=== PATIENT | male | born 1970 | race Caucasian/White ===

== ENCOUNTER 2017-04-20 22:02 | Inpatient (IN) | payer OTHER ==
[~2017-04-20] VITALS: Ht 160 cm; Wt 71.5 kg
[~2017-04-20 22:02] MED LIST: GLU500 PO; NEU300 PO
--- NOTE | 2017-04-20 23:24 | NUR ---
PT IN ED FOR SCAB TO L LATERAL CALF WITH SURROUNDING REDNESS TO AREA. PT STS HE SAW HIS PCP AND WAS GIVEN ABX BUT IT HAS NOT GOTTEN BETTER. PT AAO4, RESP E/U, STS NO PAIN AT THIS TIME
[2017-04-20 23:33] LABS: CALCIUM 8.7 mg/dL (8.5-10.1); CARBON DIOXIDE 26.8 mmol/L (21-32); CHLORIDE SERUM 98 mmol/L (98-107); CREATININE SERUM 0.8 mg/dL (0.7-1.3); GFR1 > 60 mL/min; GLUCOSE SERUM 334 mg/dL (74-106); SODIUM SERUM 133 mmol/L (136-145)
[2017-04-20 23:35] LABS: BASOPHIL % 0.5 % (0-2); PLATELET COUNT 227 x10^3mcL (130-400); RED CELL DISTRIBUTION WIDTH 11.8 % (11.5-14.5)
[2017-04-20 23:37] LABS: ALKALINE PHOSPHATASE 152 U/L (46-116); ALT/SGPT 25 U/L (16-63); AST/SGOT 12 U/L (15-37); BILIRUBIN TOTAL 0.5 mg/dL (0.20-1.00); TOTAL PROTEIN, SERUM 8.1 g/dL (6.4-8.2)
[2017-04-20 23:39] LABS: ALBUMIN 3.2 g/dL (3.4-5.0)
--- NOTE | 2017-04-20 23:47 | NUR ---
PT IN BED IN POSITION OF COMFORT, FLUIDS STILL INFUSING. IV SITE INTACT, NO REDNESS NOTED AT THIS TIME. PT RESP E/U, AAO4, STS NO PAIN
--- NOTE | 2017-04-21 00:18 | NUR ---
PT REMAINS RESTING IN A POSITION OF COMFORT IN LOW POSITIONED BED WITH SIDE RAILS UP X 2 AND CALL LIGHT WITHIN REACH.
--- NOTE | 2017-04-21 01:36 | NUR ---
GAVE REPORTS TO XIMENA TO ASSUME CARE OF PT
[2017-04-21 02:57] VITALS: BP 132/69
[2017-04-21 03:09] LABS: CHOLESTEROL/HDL RATIO 5.7
[2017-04-21 03:21] LABS: FREE T4 1.16 ng/dL (0.76-1.46); FREE THYROXINE INDEX 3.2 ug/dL (1.4-4.5)
[2017-04-21 03:52] LABS: T3 TOTAL 1.33 ng/mL
[2017-04-21 05:11] LABS: microscopic required? NO
[2017-04-21 05:39] LABS: UA SPECIFIC GRAVITY 1.015 (1.005-1.035); urine erythrocyte NEGATIVE (NEGATIVE)
[2017-04-21 05:52] LABS: AMPHETAMINE QUAL UR NONE DETECTED (NEG <=1000)
[2017-04-21 06:10] LABS: CALCIUM 8.7 mg/dL (8.5-10.1); CARBON DIOXIDE 23.2 mmol/L (21-32); CHLORIDE SERUM 100 mmol/L (98-107); CREATININE SERUM 0.8 mg/dL (0.7-1.3); GFR1 > 60 mL/min; GLUCOSE SERUM 356 mg/dL (74-106); PHOSPHOROUS 3.5 mg/dL (2.5-4.9); POTASSIUM SERUM 4.6 mmol/L (3.5-5.1); SODIUM SERUM 135 mmol/L (136-145)
--- NOTE | 2017-04-21 07:00 | NUR ---
PT WS ENDORSE TO ME THIS MORNING. PT A/O X4. TELE 35 NSR. IV INFUSING TO RAC, NO SWELLING OR REDNESS NOTED. PT DENIES ANY PAIN OR DISCOMFORT AT THIS TIME. NO ACUTE RESP DISTRESS NOTED. CALL LIGHT IN REACH, BED IN LOW POSITION. WILL CONTINUE PLAN OF CARE.
[2017-04-21 07:07] LABS: BASOPHIL % 0.1 % (0-2); PLATELET COUNT 208 x10^3mcL (130-400); RED CELL DISTRIBUTION WIDTH 12.2 % (11.5-14.5)
--- NOTE | 2017-04-21 07:16 | NUR ---
REPORT GIVEN TO KAYLYN ESQUIVEL, WILL ENDORSE CARE
[2017-04-21 09:10] VITALS: BP 119/66
--- NOTE | 2017-04-21 14:00 | NUR ---
PT IS WATCHING TV WITH BY HIS SIDE. PT DENIES ANY DISCOMFORT OR LEG PAIN AT THIS TIME. WILL CONTINUE PLAN OF CARE.
[2017-04-21 14:29] VITALS: BP 113/61
[2017-04-21 16:53] VITALS: BP 104/53
--- NOTE | 2017-04-21 18:04 | NUR ---
PT IS SITTING UP IN BED WITH BY HIS SIDE. PT STATED FEELS FINE AND DENIES ANY DISCOMFORT AT THIS TIME. PT ATE ALL HIS DINNER. CALL LIGHT IN REACH, BED IN LOW POSITION. WILL CONTINUE PLAN OF CARE.
--- NOTE | 2017-04-21 18:55 | NUR ---
PT IS WATCHING TV WITH AT HIS SIDE. PT DENIES ANY LEFT LEG PAIN OR DISCOMFORT AT THIS TIME. CALL LIGHT IN REACH, BED IN LOW POSITION. WILL ENDORSE PT TO INCOMING NURSE.
--- NOTE | 2017-04-21 19:30 | NUR ---
A&O X 4. BRUNEIAN SPEAKING. AT [facility]. ON TELE #35 READING NSR. RADIAL AND PEDAL PULSES PALPABLE. LLE +1 EDEMA NOTED. LUNG SOUNDS CLEAR AND UNLABORED. BOWEL SOUNDS ACTIVE X 4 QUADRANTS. AMBULATES WITH CRUTCHES. HAS DRY SCAB ON LLE, REDNESS IS OUTLINED. DENIES ALL PAIN. NS RUNNING AT 50 ML/HR TO RIGHT AC, NO REDNESS OR SWELLING. BED IN LOW POSITION, CALL LIGHT IN REACH. INSTRUCTED TO CALL FOR ASSISTANCE.
[2017-04-21 20:06] VITALS: BP 115/62
--- NOTE | 2017-04-22 02:05 | NUR ---
RESTING IN BED WITH EYES CLOSED. AWAKENS EASILY TO VERBAL STIMULI. BREATHING EVEN AND UNLABORED, ON RA. NO ACUTE DISTRESS NOTED. IV PATENT AND INFUSING. AT BEDSIDE. BED IN LOW POSITION, CALL LIGHT IN REACH. WILL CONTINUE TO MONITOR.
[2017-04-22 05:34] VITALS: BP 108/69
[2017-04-22 06:21] LABS: BASOPHIL % 0.5 % (0-2); PLATELET COUNT 227 x10^3mcL (130-400); RED CELL DISTRIBUTION WIDTH 12.1 % (11.5-14.5)
--- NOTE | 2017-04-22 06:26 | NUR ---
RESTING IN BED WITH EYES CLOSED. AWAKENS EASILY TO VERBAL STIMULI. AT BEDSIDE. BREATHING EVEN AND UNLABORED. NO ACUTE CHANGES DURING SHIFT. IV PATENT AND INFUSING. BED IN LOW POSITION, CALL LIGHT IN REACH. WILL ENDORSE TO ONCOMING RN.
[2017-04-22 06:55] LABS: CALCIUM 8.2 mg/dL (8.5-10.1); CARBON DIOXIDE 24.7 mmol/L (21-32); CHLORIDE SERUM 103 mmol/L (98-107); CREATININE SERUM 0.6 mg/dL (0.7-1.3); GFR1 > 60 mL/min; GLUCOSE SERUM 178 mg/dL (74-106); MAGNESIUM 1.6 mg/dL (1.8-2.4); PHOSPHOROUS 3.4 mg/dL (2.5-4.9); POTASSIUM SERUM 3.7 mmol/L (3.5-5.1); SODIUM SERUM 135 mmol/L (136-145)
--- NOTE | 2017-04-22 07:15 | NUR ---
PT WAS ENDORSE TO ME THIS MORNING. PT WAS SITTING UP IN BED WITH BY HIS SIDE. VS STABLE, NO RESP DISTRESS NOTED. PT DENIES ANY LEFT LEG PAIN AT THIS TIME. IV TO THE RAC AT 50 ML /HR , NO REDNESS OR SWELLING NOTED. WILL CONTINUE PLAN OF CARE.
--- NOTE | 2017-04-22 08:00 | NUR ---
DR. BENÍTEZ AND TEAM MADE ROUNDS THIS MORNING. PT WILL STAY ANOTHER DAY FOR ONE MORE ROUND OF ANTIBIOTICS. WILL CONTINUE PLAN OF CARE.
[2017-04-22 10:17] VITALS: BP 118/68
--- NOTE | 2017-04-22 15:00 | NUR ---
PT IS SITTING UP IN BED WATCHING TV AND FAMILY AT BEDSIDE. PT DENIES ANY LEFT LEG PAIN OR DISCOMFORT AT THIS TIME. CALL LIGHT IN REACH, BED IN LOW POSITION. WILL CONTINUE PLAN OF CARE. .
[2017-04-22 15:43] VITALS: BP 118/77
--- NOTE | 2017-04-22 19:27 | NUR ---
PT IS RESTING IN BED WATCHING TV WITH BY HIS SIDE. PT DENIES ANY LEFT LEG PAIN OR DISCOMFORT AT THIS TIME. NO RESP DISTRESS NOTED OR CHEST PAIN. IV PATENT AND INTACT INFUSING AT 50ML/HR. NO REDNESS OR SWELLING NOTED AT SITE. CALL LIGHT IN REACH. WILL ENDORSE PT TO INCOMING NURSE.
--- NOTE | 2017-04-22 19:51 | NUR ---
RECEIVED PT IN BED AAOX4 RWANDAN SPEAKING ONLY , PT DENY PAIN AT THE MOMENT , LUNG SOUNDS CTA , TELE 35 SHOWS NSR , PIV TO RAC INTACT INFUSING WELL .NO ACUTE DISTRESS NOTED , WILL CON'T TO MONITOR AND ASSIST PT WITH CARE.
[2017-04-22 21:20] VITALS: BP 129/73
--- NOTE | 2017-04-22 23:06 | NUR ---
RECEIVED REPORT FROM INDU EVANS LVN, PT STILL AWAKE AND ALERT AND DENIES ANY PAIN. MADE COMFORTABLE IN BED. CALL LIGHT WITHIN EASY REACH. RESUMED CARE. PT STILL HAS IV NS AT 50 ML PER HOUR INFUSING WELL IN THE RIGHT AC. PATENT AND INTACT.
--- NOTE | 2017-04-22 23:07 | NUR ---
REPORT GIVEN RECEIVEABBY RN , PT;S IN BED WITH EYES CL0SED , TELE NSR , PIV INTACT INFUSING WELL .
--- NOTE | 2017-04-23 02:29 | NUR ---
ADMINISTERED IV CLEOCIN INFUSING WELL.
--- NOTE | 2017-04-23 04:51 | NUR ---
PT IS ALERT AND RESTING WELL. DENIED ANY PAIN FROM HIS LEFT LEG CELLULITS. NOTED WOUND LEFT LEG IS LIKE A SCAB. AND SOME REDNESS AROUND. STILL GETTING CLEOCIN ANTIBIOTICS. WILL MONITOR. DENIES ANY PAIN FOR NOW.
[2017-04-23 05:42] VITALS: BP 121/72
[2017-04-23 06:36] LABS: BASOPHIL % 0.4 % (0-2); PLATELET COUNT 245 x10^3mcL (130-400)
[2017-04-23 06:51] LABS: CALCIUM 8.6 mg/dL (8.5-10.1); CARBON DIOXIDE 25.8 mmol/L (21-32); CHLORIDE SERUM 101 mmol/L (98-107); CREATININE SERUM 0.7 mg/dL (0.7-1.3); GFR1 > 60 mL/min; GLUCOSE SERUM 158 mg/dL (74-106); PHOSPHOROUS 4.1 mg/dL (2.5-4.9); POTASSIUM SERUM 4.2 mmol/L (3.5-5.1); SODIUM SERUM 135 mmol/L (136-145)
[2017-04-23 07:16] LABS: MAGNESIUM 1.7 mg/dL (1.8-2.4)
--- NOTE | 2017-04-23 08:22 | NUR ---
AAO TIMES 4. TELE DC'D. LUNGS CTA. NO SOB. O2 SAT ON RA 96%/ BS'S ACTIVE TIMES 4. BOONE STRONG. USING CRUTCHES SINCE LLE WOUND IS PAINFUL WITH AMBULATION. PERIPHERAL PULSES PALPABLE. NO EDEMA. LLE WOUND SITE REDNESS WAS MARKED WITH MARKER, THE REDNESS HAS RECEDED SIGNIFICANTLY, WILL DO PHOTOS BEFORE DISCHARGE. COOPERATIVE. MEDICAL ROUNDS OCCURED AT [address] BELLO AND THE MEDICINE TEAM.THE PLAN TODAY IS TO DC HIM HOME.
[2017-04-23 09:18] VITALS: BP 116/62
--- NOTE | 2017-04-23 10:43 | NUR ---
TOOK PHOTO OF [facility] CALVE AREA, SCAB AREA 2.8 X 1.4 CM. DISCHARGE PHOTO.
[2017-04-23] MEDS ORDERED: CLINDAMYCIN HC300 MG PO ×2 (11:57→15:22)
[2017-04-23] MEDS ORDERED: LAC PO ×2 (11:58→15:22)
[2017-04-23 13:08] VITALS: BP 116/62
[2017-04-23] MEDS ORDERED: LIPI10 PO (15:09)
[2017-04-23] MEDS ORDERED: ECO81 PO (15:10)
[2017-04-23] MEDS ORDERED: METFORMIN HCL1000 MG PO (15:13)
[2017-04-23] MEDS ORDERED: GLUCOTROL5 MG PO (15:16)
--- NOTE | 2017-04-23 16:09 | NUR ---
GAVE PT DISCHARGE INSTRUCTIONS AND OFF WORK ORDER. WAITING FOR ANTIBIOTIC TO FINISH. PT'S PRESENT. PT AND VERBALIZED "I UNDERSTAND" TO ALL INSTRUCTIONS.
== END 2017-04-23 16:34 | disposition home or self-care (01) | DRG 602 ==
LOC: ED 22:02 → DU 04-21 01:12 → MU 04-21 01:12 → DU 04-21 02:21 → MU 04-23 08:11
PROVIDERS: Emergency Medicine; ADMIT Family Medicine
DX: L03.116 Cellulitis of left lower limb (principal); N17.0 Acute kidney failure with tubular necrosis; E87.1 Hypo-osmolality and hyponatremia; E44.0 Moderate protein-calorie malnutrition; E72.20 Disorder of urea cycle metabolism, unspecified; E83.42 Hypomagnesemia; E78.2 Mixed hyperlipidemia; E11.9 Type 2 diabetes mellitus without complications; E11.65 Type 2 diabetes mellitus with hyperglycemia; Z90.49 Acquired absence of other specified parts of digestive tract
CPT/HCPCS: 82962; 83880; 84439; G0480; J0696; J1200; J1815; J2270; J2405; J2930; J3475; J3490; J7030; J7040; Q0092

== ENCOUNTER 2017-10-09 09:56 | Emergency (ER) | payer OTHER ==
[~2017-10-09 09:56] MED LIST changes: +CLINDAMYCIN HC300 MG PO; +ECO81 PO; +GLUCOTROL5 MG PO; +LAC PO; +LIPI10 PO; +METFORMIN HCL1000 MG PO
[2017-10-09 12:03] LABS: microscopic required? YES; urine erythrocyte 1+ (NEGATIVE)
[2017-10-09 12:04] LABS: BASOPHIL % 0.3 % (0-2); PLATELET COUNT 138 x10^3mcL (130-400); RED CELL DISTRIBUTION WIDTH 12.8 % (11.5-14.5)
[2017-10-09 12:09] LABS: CALCIUM 8.6 mg/dL (8.5-10.1); CARBON DIOXIDE 24.3 mmol/L (21-32); CHLORIDE SERUM 96 mmol/L (98-107); CREATININE SERUM 0.9 mg/dL (0.7-1.3); GFR1 > 60 mL/min; GLUCOSE SERUM 322 mg/dL (74-106); POTASSIUM SERUM 4.5 mmol/L (3.5-5.1); SODIUM SERUM 130 mmol/L (136-145)
[2017-10-09 12:17] LABS: ALKALINE PHOSPHATASE 88 U/L (46-116); ALT/SGPT 64 U/L (16-63); AST/SGOT 46 U/L (15-37); BILIRUBIN TOTAL 0.8 mg/dL (0.20-1.00); TOTAL PROTEIN, SERUM 7.8 g/dL (6.4-8.2)
[2017-10-09 14:14] VITALS: BP 110/64
== END 2017-10-09 14:15 | disposition home or self-care (01) ==
LOC: ED 09:56
PROVIDERS: Specialist
DX: B34.9 Viral infection, unspecified (principal); R31.9 Hematuria, unspecified; E11.65 Type 2 diabetes mellitus with hyperglycemia; Z79.84 Long term (current) use of oral hypoglycemic drugs
CPT/HCPCS: 82962; 87804; J1815; J7030

== ENCOUNTER 2019-11-25 22:43 | Emergency (ER) | payer OTHER ==
[~2019-11-25] VITALS: Ht 160 cm; Wt 67.2 kg
[2019-11-25 23:43] VITALS: Ht 160 cm; Wt 67.2 kg
[2019-11-26 02:21] LABS: BASOPHIL % 0.6 % (0-2); PLATELET COUNT 238 x10^3mcL (130-400); RED CELL DISTRIBUTION WIDTH 12.1 % (11.5-14.5)
[2019-11-26 02:47] LABS: CHLORIDE SERUM 96 mmol/L (98-107); CREATININE SERUM 0.7 mg/dL (0.7-1.3); GFR1 > 60 mL/min; GLUCOSE SERUM 336 mg/dL (74-106); POTASSIUM SERUM 3.7 mmol/L (3.5-5.1); SODIUM SERUM 133 mmol/L (136-145)
[2019-11-26 02:48] LABS: ALBUMIN 3.1 g/dL (3.4-5.0); ALKALINE PHOSPHATASE 165 U/L (46-116); ALT/SGPT 26 U/L (16-63); AST/SGOT 15 U/L (15-37); BILIRUBIN TOTAL 0.38 mg/dL (0.20-1.00); C REACTIVE PROTEIN 2.2 mg/dL (<=0.9); CALCIUM 8.7 mg/dL (8.5-10.1)
[2019-11-26 03:34] LABS: ERYTHROCYTE SED RATE 57 mm/hr (0-15)
[2019-11-26 06:08] VITALS: BP 153/66
== END 2019-11-26 06:08 | disposition short-term general hospital (02) ==
LOC: ED 22:43
PROVIDERS: Emergency Medicine
DX: L03.031 Cellulitis of right toe (principal); E11.9 Type 2 diabetes mellitus without complications
CPT/HCPCS: J2543; J3370; J7030; J7050